=== PATIENT | male | born 1985 ===

== ENCOUNTER 2018-01-04 14:49 | Outpatient (RCR) | payer OTHER ==
[2017-12-11 08:09] VITALS: BP 118/76
[2017-12-11 08:25] LABS: PLATELET COUNT, AUTOMATED 214 K/uL (150-450)
[2018-01-01 08:34] VITALS: BP 131/95
--- NOTE | 2018-01-01 17:49 | ONCOLOGY FOLLOW UP NOTE ---
EVENT DATE: January 01, 2018 DIAGNOSES 1. Erythrocytosis. 2. 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 3. Histor of migraine. 4. History of renal stones. CHIEF COMPLAINT The patient is here today for follow up of his erythrocytosis and iron overload. 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 The patient had family history of hemochromatosis in the maternal grandfather and maternal great-uncle, and both were treated with phlebotomies in the past, as per patient. He was complaining of fatigue lately. He had some blood work done in [place] which showed hemoglobin elevated at 17.6 and hematocrit elevated at 51%. His iron was 201, and iron saturation was high at 67%. He had some blood work done recently on November 27, 2015, which showed high serum iron at 242, ferritin 90; TSH normal at 1.47; transferrin was normal at 257; CBC showed white count 6.5, hemoglobin 18.1, hematocrit 53.6, MCV 97.2, platelets 211,000. Repeat CBC showed white count 8.6, hemoglobin 18.1, hematocrit 54.4 and platelets 224,000. JAK2 mutation analysis was negative. Hemochromatosis genetic testing showed heterozygous state for C282Y hemochromatosis mutation of the HFE gene, which is considered a carrier state. Iron studies were totally normal. Serum iron was 90, TIBC 331, iron saturation 27.2% and ferritin 105. Erythropoietin level was normal at 11. The patient is here today for followup of his erythrocytosis and heterozygous state for hereditary hemochromatosis. The patient returned back from [place] recently and apart from having runny nose, sometimes tingling in his fingers and easy bruising, the patient really is doing very well currently. HISTORY OF PRESENT ILLNESS Patient is here today for followup of his erythrocytosis and iron overload. Patient is doing fine currently and totally asymptomatic. CURRENT MEDICATIONS Ibuprofen p.r.n. for headache. ALLERGIES No known drug allergies. PAST MEDICAL HISTORY 1. Migraine headache. 2. Renal stones. 3. Occasional high blood pressure, not on treatment. PAST SURGICAL HISTORY 1. Extraction of wisdom teeth, one in 1994 and the other one in 2005. 2. Circumcision. FAMILY HISTORY Maternal grandfather and maternal great-uncle have hemochromatosis. SOCIAL HISTORY The patient is with no children. He studies [employer] at [employer]. He never smoked. He has about three glasses of wine per week. Denies any abuse of illicit drugs. REVIEW OF SYSTEMS CONSTITUTIONAL: No appetite or weight change. No fever, chills or sweating. No recent infection. HEENT: Ears: No tinnitus or hearing problem. Nose: No nasal discharge or epistaxis. Throat: No sore throat or mouth ulcers. Eyes: No diplopia or visual changes. RESPIRATORY: No shortness of breath. No cough, expectoration or hemoptysis. CARDIOVASCULAR: No chest pain, orthopnea, or paroxysmal nocturnal dyspnea (PND) . No edema. No palpitations. GASTROINTESTINAL: No nausea or vomiting. No diarrhea or constipation. No change in bowel movements. No heartburn or swallowing difficulties. No abdominal pain. No jaundice. No hematemesis, melena or rectal bleeding. GENITOURINARY: No hematuria or dysuria. MUSCULOSKELETAL: The patient has pain in his neck. NEUROLOGICAL: The patient has some tingling of the fingers on exposure to cold. HEMATOLOGIC/LYMPHATIC: No bleeding or easy bruising. No weakness or fatigue. No enlarged lymph nodes. SKIN: No skin rash or lumps. PSYCHIATRIC: No anxiety or depression. PHYSICAL EXAMINATION GENERAL: Looks stable. Well-developed, well-nourished, and in no acute distress. VITAL SIGNS: Blood pressure 131/95, pulse 112 per minute, respirations 16 per minute, temperature 97.2, pulse ox 96% on room air. HEENT: Head: Atraumatic. No sinus tenderness to palpation. Eyes: No icterus or conjunctivitis. Mouth and throat: No oral thrush or mucositis. NECK: Supple. No cervical or supraclavicular lymphadenopathy. LUNGS: Clear to auscultation and percussion bilaterally. HEART: Regular rate and rhythm. No gallops, murmurs, clicks or rubs. ABDOMEN: Soft and lax. No tenderness. No hepatosplenomegaly. No masses. EXTREMITIES: No cyanosis, clubbing or edema. LYMPHATICS: No peripheral lymphadenopathy. NEUROLOGICAL: Conscious, alert and oriented times three. No focal motor or sensory deficits. PSYCHIATRIC: Mood and affect appear normal. SKIN: No skin rash, bruise or purpuric eruption. DIAGNOSTIC DATA CBC showed a white count of 6.5, hemoglobin 18.5, hematocrit 52.6, platelets 114 ,000. Iron studies showed serum iron 225, TIBC 313, iron saturation 71% and ferritin 74. ASSESSMENT 1. Abnormal iron studies with high iron saturation, and the patient tested positive for heterozygous state for C282Y mutation of the HFE gene. With his iron saturation today at 71% and ferritin 74, I am planning to phlebotomize 500 mL of blood today. Patient may leave town after he will finish his work at [facility] [employer] by May, so I am planning to see him in May with CBC , chem panel, iron studies with ferritin, and we will decide about phlebotomy at that time if needed. 2. Erythrocytosis. Could be due to high altitude. His current hematocrit is 52.6%. Patient will receive phlebotomy this time anyway because of the high iron saturation. We will continue to monitor in the future. His JAK2 mutation analysis came back negative and the erythropoietin level was normal at 11, so there is no evidence of polycythemia vera. 3. History of migraines. 4. History of renal stones. PLAN 1. Phlebotomize 500 mL of blood today. 2. Patient to return in May 2018 with CBC, chem panel, iron studies with ferritin. 3. Patient is to contact us for any new concern or complaints. [facility]
[~2018-01-04 14:49] MED LIST: IBUP200C71 PO
[2018-01-04 15:25] VITALS: BP 129/86
== END 2018-01-29 09:53 | disposition home or self-care (01) ==
LOC: SPU 14:49
PROVIDERS: ATTEND Internal Medicine Hematology
DX: D75.1 Secondary polycythemia (principal); R53.83 Other fatigue; M54.2 Cervicalgia
CPT/HCPCS: 36415; 82728; 83540; 83550; 85025; 99195; 99212

== ENCOUNTER 2018-05-28 08:50 | Outpatient (RCR) | payer OTHER ==
[2018-05-21 08:25] LABS: PLATELET COUNT, AUTOMATED 206 K/uL (150-450)
[2018-05-21 08:41] VITALS: BP 117/91
[~2018-05-28 08:50] MED LIST changes: +IBUP-136 PO; -IBUP200C71 PO
[2018-05-28 08:54] VITALS: BP 135/93
--- NOTE | 2018-05-28 14:29 | ONCOLOGY FOLLOW UP NOTE ---
EVENT DATE: May 28, 2018 DIAGNOSES 1. Erythrocytosis. 2. 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 3. Histor of migraine. 4. History of renal stones. CHIEF COMPLAINT The patient is here today for followup of his erythrocytosis and iron overload. 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 The patient has family history of hemochromatosis in the maternal grandfather and maternal great-uncle, and both were treated with phlebotomies in the past, as per patient. He was complaining of fatigue lately. He had some blood work done in [place] which showed hemoglobin elevated at 17.6 and hematocrit elevated at 51%. His iron was 201, and iron saturation was high at 67%. He had some blood work done recently on November 27, 2015, which showed high serum iron at 242, ferritin 90; TSH normal at 1.47; transferrin was normal at 257. CBC showed white count 6.5, hemoglobin 18.1, hematocrit 53.6, MCV 97.2, platelets 211,000. Repeat CBC showed white count 8.6, hemoglobin 18.1, hematocrit 54.4, and platelets 224,000. JAK2 mutation analysis was negative. Hemochromatosis genetic testing showed heterozygous state for C282Y hemochromatosis mutation of the HFE gene which is considered a carrier state. Iron studies were totally normal. Serum iron was 90, TIBC 331, iron saturation 27.2%, and ferritin 105. Erythropoietin level was normal at 11. The patient is here today for followup of his erythrocytosis and heterozygous state for hereditary hemochromatosis. The patient returned back from [place] recently, and apart from having runny nose, sometimes tingling in his fingers, and easy bruising, the patient really is doing very well currently. HISTORY OF PRESENT ILLNESS Patient is here today for followup of his erythrocytosis and iron overload. Patient is doing fine currently, and he is totally asymptomatic. He has cough with expectoration from upper respiratory tract infection, but other than that, he is really very well. Patient is moving back to [place] very soon. CURRENT MEDICATIONS Ibuprofen p.r.n. for headache. ALLERGIES No known drug allergies. PAST MEDICAL HISTORY 1. Migraine headache. 2. Renal stones. 3. Occasional high blood pressure, not on treatment. PAST SURGICAL HISTORY 1. Extraction of wisdom teeth, one in 1994 and the other one in 2005. 2. Circumcision. FAMILY HISTORY Maternal grandfather and maternal great-uncle have hemochromatosis. SOCIAL HISTORY The patient is with no children. He studies [employer] at [facility]. He never smoked. He has about three glasses of wine per week. Denies any abuse of illicit drugs. REVIEW OF SYSTEMS CONSTITUTIONAL: No appetite or weight change. No fever, chills or sweating. No recent infection. HEENT: Ears: No tinnitus or hearing problem. Nose: No nasal discharge or epistaxis. Throat: No sore throat or mouth ulcers. Eyes: No diplopia or visual changes. RESPIRATORY: No shortness of breath. He has some cough with expectoration from upper respiratory tract infection. CARDIOVASCULAR: No chest pain, orthopnea, or paroxysmal nocturnal dyspnea (PND). No edema. No palpitations. GASTROINTESTINAL: No nausea or vomiting. No diarrhea or constipation. No change in bowel movements. No heartburn or swallowing difficulties. No abdominal pain. No jaundice. No hematemesis, melena, or rectal bleeding. GENITOURINARY: No hematuria or dysuria. MUSCULOSKELETAL: The patient has pain in his neck. NEUROLOGICAL: The patient has some tingling of the fingers on exposure to cold. HEMATOLOGIC/LYMPHATIC: No bleeding or easy bruising. No weakness or fatigue. No enlarged lymph nodes. SKIN: No skin rash or lumps. PSYCHIATRIC: No anxiety or depression. PHYSICAL EXAMINATION GENERAL: Looks stable. Well developed, well nourished, and in no acute distress. VITAL SIGNS: Blood pressure 135/93, pulse 85 per minute, respirations 16 per minute, temperature 98, pulse ox 95% on room air. HEENT: Head: Atraumatic. No sinus tenderness to palpation. Eyes: No icterus or conjunctivitis. Mouth and throat: No oral thrush or mucositis. NECK: Supple. No cervical or supraclavicular lymphadenopathy. LUNGS: Clear to auscultation and percussion bilaterally. HEART: Regular rate and rhythm. No gallops, murmurs, clicks, or rubs. ABDOMEN: Soft and lax. No tenderness. No hepatosplenomegaly. No masses. EXTREMITIES: No cyanosis, clubbing, or edema. LYMPHATICS: No peripheral lymphadenopathy. NEUROLOGICAL: Conscious, alert, and oriented times three. No focal motor or sensory deficits. PSYCHIATRIC: Mood and affect appear normal. SKIN: No skin rash, bruise, or purpuric eruption. DIAGNOSTIC DATA CBC showed white count 7.4, hemoglobin 17.5, hematocrit 49, platelets 206,000. Serum iron 140 which is down from 225, TIBC is 328, iron saturation 42.7% which is down from 71.9%, and ferritin is 50, down from 74 after one episode of phlebotomy. ASSESSMENT 1. Abnormal iron studies with high iron saturation, and the patient tested positive for heterozygous state for C282Y mutation of the HFE gene. At his last visit, his iron saturation was 71.9%, and he received one episode of phlebotomy of 500 mL of blood. His current iron saturation is within the normal range at 42.7%. Ferritin dropped from 74 to 50. Patient is heterozygous state for C282Y mutation of the HFE gene, and the patient was advised to avoid alcohol intake because I noticed people with heterozygous state for hemochromatosis usually develop iron overload with drinking. He is doing fine currently. The patient is planning to move to [place] next month, and he is really very good currently. 2. Erythrocytosis. Could be due to high altitude. Current hematocrit is 49%, down from 52.6%. Patient after the phlebotomy started to feel the symptoms of high altitude with shortness of breath, but he is doing fine currently. JAK2 mutation analysis was checked and came back negative, and the erythropoietin level was normal was 11, so there was no evidence of polycythemia vera. 3. History of migraine. 4. History of renal stones. PLAN 1. Patient to return on a p.r.n. basis if returning back to town. He is to take my last note to show it to his physician in [place]. 2. Patient is to contact us for any new concern or complaints. RONALD
== END 2018-06-30 09:08 | disposition home or self-care (01) ==
LOC: ONC 08:50
PROVIDERS: ATTEND Internal Medicine Hematology
DX: D75.1 Secondary polycythemia (principal); R53.83 Other fatigue; M54.2 Cervicalgia; R79.89 Other specified abnormal findings of blood chemistry
CPT/HCPCS: 36415; 82728; 83540; 83550; 85025; 99212